=== PATIENT | female | born 1965 | race Asian ===

== ENCOUNTER → 2020-09-30 | Emergency (ER) | payer OTHER ==
[~2020-09-30] VITALS: Ht 147.3 cm; Wt 68.0 kg
[2020-09-30 20:16] VITALS: BP 129/81
== END | disposition left against medical advice (07) ==
LOC: ER 20:13
DX: H57.89 Other specified disorders of eye and adnexa (principal); Z53.21 Procedure and treatment not carried out due to patient leaving prior to being seen by health care provider